=== PATIENT | female | born 1970 | race Caucasian/White ===

== ENCOUNTER → 2020-06-23 10:28 | Outpatient (CLI) | payer OTHER, SELFPAY ==
--- NOTE | ~2020-06-23 | XR_ITS ---
XR foot LT min 3V DATE: 06/23/2020 10:52 INDICATION: Left foot pain TECHNIQUE: 3 views COMPARISON: None FINDINGS: There is osteoarthritic joint space narrowing and spurring at the tibiotalar joint. Osteoar thritic changes are noted at the tarsometatarsal joints. Minimal plantar calcaneal enthesopathy. No fracture, dislocation, periosteal reaction or bone destruction. IMPRESSION: Polyarticular osteoarthritis Minimal plantar calcaneal enthesopathy Reviewed, dictated and finalized at location A.
== END ==
PROVIDERS: PCP Internal Medicine; Visit Provider Internal Medicine
DX: M19.072 Primary osteoarthritis, left ankle and foot (principal)
CPT/HCPCS: 73630

== ENCOUNTER 2020-08-18 08:45 | Outpatient (CLI) | payer OTHER, SELFPAY ==
[2020-08-18 08:58] LABS: Basophils Percent Auto 1.1 % (0.0-1.0); Eosinophils Absolute Auto 0.52 K/mm3 (0.02-0.50); Eosinophils Percent Auto 5.7 % (1.0-6.0); Hematocrit 41.7 % (35.0-49.0); Immature Granulocyte Absolute 0.16 K/mm3 (0.00-0.00); Immature Granulocyte Percent A 1.7 % (0.0-0.0); Lymphocytes Absolute Auto 2.67 K/mm3 (1.10-4.50); Lymphocytes Percent Auto 29.1 % (18.0-42.0); Mean Corpuscular HGB Conc 33.6 g/dL (32.0-36.0); Mean Corpuscular Hemoglobin 28.6 pg (27.0-31.0); Mean Corpuscular Volume 85.3 fL (78.0-102.0); Mean Platelet Volume 9.9 fl (9.2-11.8); Monocytes Percent Auto 6.5 % (2.0-11.0); Neutrophils Absolute Auto 5.1 K/mm3 (1.7-7.2); Neutrophils Percent Auto 55.9 % (50.0-70.0); Platelet Count Result 320 K/mm3 (150-420); Red Blood Count 4.89 M/mm3 (4.20-5.40); Red Cell Distribution Width 12.8 % (11.6-14.4); White Blood Count 9.2 K/mm3 (4.8-10.8)
[2020-08-18 10:21] LABS: Alanine Aminotransferase 32 U/L (14-59); Albumin Level 3.6 g/dL (3.4-5.0); Alkaline Phosphatase 90 U/L (46-116); Anion Gap 8 mmol/L (8-16); Aspartate Amino Transferase 15 U/L (15-37); Bilirubin,Total 0.5 mg/dL (0.00-1.00); Blood Urea Nitrogen 13 mg/dL (7-18); Calcium 8.8 mg/dL (8.5-10.1); Carbon Dioxide 29 mmol/L (21-32); Chloride 104 mmol/L (98-108); Cholesterol 188 mg/dL (0-200); Estimated Glomerular Filt Rate > 60; Glucose 114 mg/dL (70-99); HDL Direct 54 mg/dL (40-60); LDL Cholesterol Calculated 102 mg/dL (<130); Osmolality Calculated 293 mOsm/kg (285-295); Potassium 4.6 mmol/L (3.5-5.1); Sodium 141 mmol/L (136-145); Total Protein 6.8 g/dL (6.4-8.2); Triglycerides 161 mg/dL (0-150); Vitamin B12 481 pg/mL (193-986)
[2020-08-18 11:17] LABS: Folic Acid > 20.0 ng/mL (8.6->20)
== END 2020-08-18 08:46 | disposition home or self-care (01) ==
LOC: CHSLAB 08:47
PROVIDERS: PCP Internal Medicine; Visit Provider Internal Medicine
DX: Z00.00 Encounter for general adult medical examination without abnormal findings (principal); R53.83 Other fatigue; I10 Essential (primary) hypertension
CPT/HCPCS: 36415; 80053; 80061; 82607; 82746; 83735; 84443; 85025

== ENCOUNTER 2020-09-01 07:55 | Outpatient (CLI) | payer OTHER, SELFPAY ==
--- NOTE | ~2020-09-01 | US_ITS ---
EXAMINATION: US venous doppler LE EXAM DATE: 09/01/2020 08:20 INDICATION: Bilateral leg pain. TECHNIQUE: Multiple grayscale, color flow and Doppler images of the lower extremity deep venous syste ms bilaterally were obtained and reviewed. There is no prior study for comparison. FINDINGS: RIGHT SIDE Common femoral: -------- Normal. Profunda femoral: ------- Normal. Femoral: Normal. Popliteal: Normal. Posterior tibial: --------- Normal. Peroneal: Normal. Gastrocnemius: Normal. Soleus: Not visualized. Greater saphenous: ----- Normal. Lesser saphenous: ------ Not visualized. LEFT SIDE Common femoral: -------- Normal. Profunda femoral: ------- Normal. Femoral: Normal. Popliteal: Normal. Posterior tibial: --------- Normal. Peroneal: Normal. Gastrocnemius: Normal. Soleus: Not visualized. Greater saphenous: ----- Normal. Lesser saphenous: ------ Not visualized. IMPRESSION: 1. No evidence of lower extremity deep venous thrombosis bilaterally. Reviewed, dictated and finalized at location A. S BLOCK BENDER
== END 2020-09-01 07:56 | disposition home or self-care (01) ==
LOC: CHSIMG 07:56
PROVIDERS: PCP Internal Medicine; Visit Provider Internal Medicine
DX: M79.606 Pain in leg, unspecified (principal); M79.89 Other specified soft tissue disorders
CPT/HCPCS: 93970

== ENCOUNTER 2021-07-30 01:26 | Day surgery (SDC) | payer OTHER, SELFPAY ==
[2021-07-19 10:19] VITALS: BMI 52.8
[2021-07-30 06:50] VITALS: BP 149/91; PULSE 78; TEMP 36.2; O2SAT 97
[2021-07-30] MEDS: LACTATED RINGERS 1,000 ML 150 ML IV CONT (06:59)
--- NOTE | 2021-07-30 07:07 | PM.HPGS ---
History of Present Illness History of Present Illness Consent: Risks, benefits, and alternatives have been discussed and questions answered. Patient agrees to proceed with procedure. Chief complaint: neoplasm screening Narrative: Jackie Monge is a 51 year old female referred for colon cancer screening. This is her 1st colonoscopy. One grandparent had colon cancer Review of Systems Review of Systems: All systems reviewed & are unremarkable except as noted in HPI and below PMFSH Past Medical History Medical History (Updated 07/30/21 @ 07:07 by Albert Desir MD) Essential (primary) hypertension Primary osteoarthritis of left knee Surgical History Surgical History History of (~1998) Family History Family History Father Diabetes mellitus Family history of arthritis Family history of hemochromatosis Mother Family history of arthritis Family history of sarcoidosis Family history of atrial fibrillation Patient's mother is in good health Sibling Patient's sister is in good health Patient's brother is in good health Social History Social History Smoking status: Never smoker Second hand tobacco smoke exposure: No Alcohol intake: current Substance use: never Substance use type: does not use Living arrangements: with family Spiritual care concerns: No Meds Home Medications and Allergies Home Medications Medication Instructions Recorded Confirmed Type loratadine 10 mg tablet 10 mg PO DAILY 08/28/19 07/30/21 History multivitamin 1 tablet PO DAILY 08/28/19 07/30/21 History acetaminophen 500 mg tablet 1,000 mg PO Q6H PRN tablet 08/28/20 07/30/21 History ibuprofen 800 mg tablet 800 mg PO TID PRN 08/28/20 07/30/21 History lisinopril 10 mg tablet 10 mg PO DAILY #90 tablet 02/22/21 07/30/21 Rx Allergies Allergy/AdvReac Type Severity Reaction Status Date / Time No Known Allergies Allergy Verified 07/19/21 10:18 Vital Signs Vital Signs - 24 hr 07/30/21 06:50 Temperature 36.2 C L Pulse Rate 78 Blood Pressure 149/91 H Pulse Oximetry 97 Exam Resp: Auscultation: clear to auscultation bilaterally Cardio: Rate: regular rate Rhythm: regular rhythm GI: GI Palp: Yes Soft to palpation and No Tenderness to palpation present (GI) Assessment and Plan Assessment and plan (1) Colon cancer screening: Code(s): Z12.11 - Encounter for screening for malignant neoplasm of colon Status: Acute Assessment and Plan: Colonoscopy with possible biopsy or polypectomy or cautery or injection of substances.
--- NOTE | 2021-07-30 07:35 | P.PNAN_ITS ---
Anes - Initial Pre Proc Eval Procedure: Operation Date: 07/30/21 08:00 Proposed Procedures p Screening Colonoscopy - Albert Desir MD Date/Time: 07/30/21 07:35 Surgeon: Albert Desir MD Pre Op Diagnosis: neoplasm screening Patient Data Age: 51 Gender: F Height: 1.7 m Weight: 152.4 kg Last Vital Signs Temp 36.2 C L 07/30/21 06:50 Pulse 78 07/30/21 06:50 BP 149/91 H 07/30/21 06:50 Pulse Ox 97 07/30/21 06:50 Allergies Allergy/AdvReac Type Severity Reaction Status Date / Time No Known Allergies Allergy Verified 07/19/21 10:18 Home Medications Medication Instructions Recorded Confirmed Type loratadine 10 mg tablet 10 mg PO DAILY 08/28/19 07/30/21 History multivitamin 1 tablet PO DAILY 08/28/19 07/30/21 History acetaminophen 500 mg tablet 1,000 mg PO Q6H PRN tablet 08/28/20 07/30/21 History ibuprofen 800 mg tablet 800 mg PO TID PRN 08/28/20 07/30/21 History lisinopril 10 mg tablet 10 mg PO DAILY #90 tablet 02/22/21 07/30/21 Rx Patient hx anesthesia problems: none Family hx anesthesia problems: none Results Review: All pre-operative results and documents have been reviewed as part of the pre-operative evaluation. [facility] Past Medical History Medical History Essential (primary) hypertension Primary osteoarthritis of left knee Surgical History Surgical History History of (~1998) Family History Family History Father Diabetes mellitus Family history of arthritis Family history of hemochromatosis Mother Family history of arthritis Family history of sarcoidosis Family history of atrial fibrillation Patient's mother is in good health Sibling Patient's sister is in good health Patient's brother is in good health Social History Social History Smoking status: Never smoker Second hand tobacco smoke exposure: No Alcohol intake: current Substance use: never Substance use type: does not use Living arrangements: with family Spiritual care concerns: No Anes - Eval Final PreProcedure Day of Procedure 07/30/21 07:35 Patient weight: super morbidly obese Heart: regular rate and rhythm Lungs: decreased breath sounds Airway: Mallampati scale class III Neurological: alert and oriented Last oral intake: >/= 8 hours ASA classification: III Emergent: no Anesthetic plan: proceed Anesthesia type and monitoring: general GIVS and standard monitoring Results Review: All pre-operative results and documents have been reviewed as part of the pre-operative evaluation. Informed Consent: The patient's anesthetic plan and its attendant risks and benefits were discussed with the patient/family/POA. Questions were solicited and answers provided to the satisfaction of the patient/family/POA.
[2021-07-30 08:14] VITALS: BP 110/71; PULSE 71; RESP 21; O2SAT 98
[2021-07-30 08:24] VITALS: BP 116/77; PULSE 71; RESP 17; O2SAT 98
[2021-07-30 08:34] VITALS: BP 138/95; PULSE 66; RESP 19; O2SAT 100
== END 2021-07-30 08:50 | disposition home or self-care (01) ==
PROVIDERS: PCP Internal Medicine; Visit Provider Internal Medicine Gastroenterology
PROC: 0DJD8ZZ Inspection of Lower Intestinal Tract, Via Natural or Artificial Opening Endoscopic (ICD-10-PCS; CPT 45378; principal; 2021-07-30 08:00)
DX: Z12.11 Encounter for screening for malignant neoplasm of colon (principal); K57.30 Diverticulosis of large intestine without perforation or abscess without bleeding; I10 Essential (primary) hypertension; E66.9 Obesity, unspecified; Z68.43 Body mass index [BMI] 50.0-59.9, adult
CPT/HCPCS: 45378; J2704; J7120

== ENCOUNTER 2021-08-17 07:01 | Outpatient (CLI) | payer OTHER, SELFPAY ==
--- NOTE | ~2021-08-17 | XR_ITS ---
EXAMINATION: XR lumbar spine 6V w bending DATE: 08/17/2021 07:54 INDICATION: Low back pain TECHNIQUE: Anteroposterior and neutral and with lateral bending, lateral, and bilateral oblique views of the lumbar spine, and cone-down lateral view of the lumbosacral junction were obtained. COMPARISON: None. FINDINGS: There are 2 mm of anterolisthesis of L3 on L4, 4 mm of anterolisthesis of L4 on L5 and 5 mm of retrolisthesis of L5 on S1. There is severe loss of intervertebral disc space height at L5-S1. Th ere is mild loss of intervertebral disc space height at L4-5. The vertebral body heights are maintain ed. There is no fracture. Small degenerative osteophytes project from the anterior endplates of multi ple vertebral bodies. There is moderate facet osteoarthritis of the lower lumbar spine. IMPRESSION: 1. Moderate lumbar spondylosis without acute findings. Reviewed, dictated and finalized at location A.
--- NOTE | ~2021-08-17 | XR_ITS ---
EXAMINATION: XR hip RT min 3V w AP pelvis INDICATION: Right hip pain TECHNIQUE: AP view the pelvis and three views of the right hip are obtained on five radiographs. COMPARISON: None FINDINGS: Bone alignment is normal. There is no fracture. There is mild osteoarthritis of the hips. L ower lumbar spondylosis is noted. The soft tissues are unremarkable. IMPRESSION: 1. Mild osteoarthritis of the hips. Reviewed, dictated and finalized at location A.
== END 2021-08-17 07:02 | disposition home or self-care (01) ==
LOC: CHSIMG 07:04
PROVIDERS: PCP Internal Medicine; Visit Provider Physician Assistant
DX: M54.9 Dorsalgia, unspecified (principal); M25.551 Pain in right hip; R20.0 Anesthesia of skin
CPT/HCPCS: 72114; 73502

== ENCOUNTER 2021-09-09 07:03 | Outpatient (CLI) | payer OTHER, SELFPAY ==
[2021-09-09 07:14] LABS: Basophils Absolute Auto 0.11 K/mm3 (0.00-0.10); Eosinophils Absolute Auto 0.54 K/mm3 (0.02-0.50); Eosinophils Percent Auto 5.1 % (1.0-6.0); Hematocrit 42.5 % (35.0-49.0); Hemoglobin 14.3 g/dL (12.0-15.0); Immature Granulocyte Percent A 1.9 % (0.0-0.0); Lymphocytes Percent Auto 29.2 % (18.0-42.0); Mean Corpuscular HGB Conc 33.6 g/dL (32.0-36.0); Mean Corpuscular Hemoglobin 28.6 pg (27.0-31.0); Mean Platelet Volume 9.8 fl (9.2-11.8); Monocytes Absolute Auto 0.82 K/mm3 (0.10-0.90); Monocytes Percent Auto 7.7 % (2.0-11.0); Neutrophils Absolute Auto 5.9 K/mm3 (1.7-7.2); Neutrophils Percent Auto 55.1 % (50.0-70.0); Platelet Count Result 340 K/mm3 (150-420); Red Cell Distribution Width 12.9 % (11.6-14.4); White Blood Count 10.6 K/mm3 (4.8-10.8)
[2021-09-09 08:33] LABS: Alanine Aminotransferase 43 U/L (14-59); Albumin Level 3.7 g/dL (3.4-5.0); Alkaline Phosphatase 86 U/L (46-116); Anion Gap 6 mmol/L (8-16); Aspartate Amino Transferase 13 U/L (15-37); Bilirubin,Total 0.4 mg/dL (0.00-1.00); Blood Urea Nitrogen 11 mg/dL (7-18); Calcium 8.9 mg/dL (8.5-10.1); Carbon Dioxide 31 mmol/L (21-32); Chloride 101 mmol/L (98-108); Cholesterol 186 mg/dL (0-200); Estimated Glomerular Filt Rate > 60; Glucose 110 mg/dL (70-99); HDL Direct 51 mg/dL (40-60); LDL Cholesterol Calculated 97 mg/dL (<130); Osmolality Calculated 286 mOsm/kg (285-295); Potassium 4.8 mmol/L (3.5-5.1); Sodium 138 mmol/L (136-145); Thyroid Stimulating Hormone 1.04 uIU/mL (0.36-3.74); Total Protein 6.9 g/dL (6.4-8.2); Triglycerides 190 mg/dL (0-150); Vitamin B12 546 pg/mL (193-986)
[2021-09-09 08:42] LABS: Folic Acid > 20.0 ng/mL (8.6->20)
== END 2021-09-09 07:04 | disposition home or self-care (01) ==
LOC: CHSLAB 07:05
PROVIDERS: PCP Internal Medicine; Visit Provider Internal Medicine
DX: Z00.00 Encounter for general adult medical examination without abnormal findings (principal)
CPT/HCPCS: 36415; 80053; 80061; 82607; 82746; 84443; 85025

== ENCOUNTER 2022-10-10 06:47 | Outpatient (CLI) | payer OTHER, SELFPAY ==
[2022-10-10 07:22] LABS: Basophils Absolute Auto 0.12 K/mm3 (0.00-0.10); Basophils Percent Auto 1.2 % (0.0-1.0); Eosinophils Absolute Auto 0.42 K/mm3 (0.02-0.50); Eosinophils Percent Auto 4.2 % (1.0-6.0); Hematocrit 40.6 % (35.0-49.0); Hemoglobin 13.8 g/dL (12.0-15.0); Lymphocytes Absolute Auto 3.41 K/mm3 (1.10-4.50); Lymphocytes Percent Auto 34.2 % (18.0-42.0); Mean Corpuscular Hemoglobin 28.7 pg (27.0-31.0); Mean Corpuscular Volume 84.4 fL (78.0-102.0); Mean Platelet Volume 10.3 fl (9.2-11.8); Monocytes Absolute Auto 0.79 K/mm3 (0.10-0.90); Monocytes Percent Auto 7.9 % (2.0-11.0); Neutrophils Absolute Auto 5.1 K/mm3 (1.7-7.2); Neutrophils Percent Auto 51.5 % (50.0-70.0); Platelet Count Result 307 K/mm3 (150-420); Red Blood Count 4.81 M/mm3 (4.20-5.40); Red Cell Distribution Width 12.8 % (11.6-14.4)
[2022-10-10 08:27] LABS: Alanine Aminotransferase 40 U/L (14-59); Albumin Level 3.8 g/dL (3.4-5.0); Alkaline Phosphatase 89 U/L (46-116); Anion Gap 6 mmol/L (8-16); Aspartate Amino Transferase 17 U/L (15-37); Bilirubin,Total 0.5 mg/dL (0.00-1.00); Blood Urea Nitrogen 14 mg/dL (7-18); Calcium 8.9 mg/dL (8.5-10.1); Carbon Dioxide 32 mmol/L (21-32); Chloride 101 mmol/L (98-108); Cholesterol 189 mg/dL (0-200); Estimated Glomerular Filt Rate > 60; Folic Acid 19.7 ng/mL (8.6->20); Glucose 109 mg/dL (70-99); HDL Direct 53 mg/dL (40-60); LDL Cholesterol Calculated 106 mg/dL (<130); Osmolality Calculated 289 mOsm/kg (285-295); Potassium 4.5 mmol/L (3.5-5.1); Sodium 139 mmol/L (136-145); Thyroid Stimulating Hormone 1.28 uIU/mL (0.36-3.74); Triglycerides 149 mg/dL (0-150); Vitamin B12 508 pg/mL (193-986)
== END 2022-10-10 06:48 | disposition home or self-care (01) ==
LOC: CHSLAB 06:49
PROVIDERS: PCP Internal Medicine; Visit Provider Internal Medicine
DX: R53.83 Other fatigue (principal); R73.9 Hyperglycemia, unspecified
CPT/HCPCS: 36415; 80053; 80061; 82607; 82746; 83036; 84443; 85025

== ENCOUNTER 2022-12-15 16:29 | Outpatient (CLI) | payer OTHER, SELFPAY ==
--- NOTE | ~2022-12-15 | XR_ITS ---
EXAMINATION: XR hip RT min 3V w AP pelvis DATE: 12/15/2022 17:16 INDICATION: Right hip pain. Fall. TECHNIQUE: An anteroposterior view of the pelvis on 2 radiographs and 3 views of right hip on 4 radio graphs were obtained. COMPARISON: Pelvis and right hip radiographs 08/17/2021 FINDINGS: Bone alignment is normal. No fracture. There is severe lumbar spondylosis. There is mild os teoarthritis of the hips. IMPRESSION: 1. Mild osteoarthritis of the hips. Reviewed, dictated and finalized at location A. P CLASSIFIER
--- NOTE | ~2022-12-15 | XR_ITS ---
EXAMINATION: XR knee RT 3V DATE: 12/15/2022 17:14 INDICATION: Right knee pain. Fall. TECHNIQUE: 5 views of right knee were obtained. COMPARISON: Right knee radiographs 02/19/2013 FINDINGS: Bone alignment is normal. No fracture. There is moderate osteoarthritis of medial and later al compartments and severe osteoarthritis of patellofemoral compartment. No knee joint effusion. IMPRESSION: 1. Severe right knee osteoarthritis. Reviewed, dictated and finalized at location A. ER CRAWLER TORCH
== END 2022-12-15 16:30 | disposition home or self-care (01) ==
LOC: CHSIMG 16:31
PROVIDERS: PCP Internal Medicine; Visit Provider Physician Assistant
DX: M25.569 Pain in unspecified knee (principal); M25.559 Pain in unspecified hip; M16.0 Bilateral primary osteoarthritis of hip; M17.11 Unilateral primary osteoarthritis, right knee
CPT/HCPCS: 73502; 73562

== ENCOUNTER 2023-02-21 11:00 | Outpatient (RCR) | payer OTHER, SELFPAY ==
--- NOTE | 2022-12-29 18:54 | PTOPEVAL1 ---
Assessment and note entered by Zelalem Basilio, PT Evaluation Information Assessment Status Evaluation Diagnosis R knee, hip , and low back pain Subjective Information Christiane reports she has been dealing with TANI knee pain for awhile, but her R hip and low back is really starting to bother her also. It hurts with walking driving, prolonged sitting, steps, and sleeping. She states the pain actually radiated down both legs. She uses NSAIDS, ices, Biofreeze, transdermal patches. She will sometimes use a cane when it is really bothering her. Is trying to lose weight, but currently too heavy for a knee surgery. Is using a restorator at home. Works at [employer] Clinical Summary Christiane is a 52 year old female coming into the clinic with R knee, R hip, and lower back pain. She has decreased TANI knee range of motion and strength along with a tight piriformis. Prognosis is guarded secondary to weight. Physical therapy will work on stretching the piriformis and work on VMO strengthening. These treatments will address the objective and functional deficits as defined above. The patient will be advanced safely and appropriately in order for the patient to progress towards his/her prior level of function. Additional exercises will be introduced and as well as a comprehensive home exercise program upon discharge, if needed, ?to ensure carryover of functional gains achieved in the clinic. This treatment plan has been reviewed and agreement upon by the patient.
--- NOTE | 2023-01-25 09:15 | PTOPREEVAL ---
Assessment and note entered by Zelalem Basilio, PT Evaluation Information Assessment Status Re-evaluation Diagnosis Pain in R knee, R hip, and low back Subjective Information Patient reporting she is still having pain in the RLE and back, but reporting being able to get out of chairs earlier and feels better overall. Patient still has issues with steps and prolonged walking or being on her feet. Is using her restorator at home, but thinking about using the Nu-Step at work. Assessment PT Clinical Summary Christiane is a 52 year old female coming into the clinic for R knee, hip, and low back pain. She was evaluated on 12/28/22 and has attended 8 appts. She has met her strengthening goal and met her range of motion for the L knee goal. No improvements in pain. Recommend further physical therapy to work on core strengthening along with further modalities and manual therapy for pain control. Plan of Care Interventions Electrical Stimulation,Gait Training,Hot Pack/Cold Pack,Manual Therapy,Neuro Re-education,Patient/ Caregiver Education,Therapeutic Activities, Therapeutic Exercise,Ultrasound Other Interventions taping, cupping, IASTM PT Services Indicated Yes Treatment Frequency and 1-2x/wk for 4 weeks Duration These treatments will address the objective and functional deficits as defined above. The patient will be advanced safely and appropriately in order for the patient to progress towards his/her prior level of function. Additional exercises will be introduced and as well as a comprehensive home exercise program upon discharge, if needed, ?to ensure carryover of functional gains achieved in the clinic. This treatment plan has been reviewed and agreement upon by the patient.
--- NOTE | 2023-02-21 11:40 | PTOPDC ---
Assessment and note entered by Zelalem Basilio, PT Evaluation Information Assessment Status Discharge Diagnosis Pain in R knee, Pain in R hip, low back pain Onset Chronic Subjective Information Patient reports she still has tightness and pain, but feels stronger and feels like she will hopefully be able to hold off on knee replacement for another year. Reported Pain Level Pain Score 5: Self Report Assessment PT Clinical Summary Christiane is a 53 year old female coming into the [facility] for RLE and lower back pain. The patient was evaluated on 12/28/22 and has attended 13 visits total. She has met her pain, functional , and strength goals. Did not meet range of motion or centralization goals, although they have improved. Discharged from skilled physical therapy with her home HEP. Plan of Care PT Services Indicated No
== END 2023-03-13 08:47 | disposition home or self-care (01) ==
LOC: ANHPT 11:00
PROVIDERS: PCP Internal Medicine; Visit Provider Physician Assistant
DX: M25.561 Pain in right knee (principal); M25.551 Pain in right hip; M54.50 Low back pain, unspecified
CPT/HCPCS: 97016; 97110; 97112; 97140; 97161; 97530

== ENCOUNTER 2023-12-12 07:08 | Outpatient (CLI) | payer OTHER, SELFPAY ==
[2023-12-12 07:26] LABS: Basophils Absolute Auto 0.12 K/mm3 (0.00-0.10); Basophils Percent Auto 1.3 % (0.0-1.0); Eosinophils Absolute Auto 0.32 K/mm3 (0.02-0.50); Eosinophils Percent Auto 3.6 % (1.0-6.0); Hematocrit 41.7 % (35.0-49.0); Hemoglobin 13.9 g/dL (12.0-15.0); Immature Granulocyte Absolute 0.06 K/mm3 (0.00-0.00); Immature Granulocyte Percent A 0.7 % (0.0-0.0); Lymphocytes Absolute Auto 2.86 K/mm3 (1.10-4.50); Lymphocytes Percent Auto 31.9 % (18.0-42.0); Mean Corpuscular HGB Conc 33.3 g/dL (32.0-36.0); Mean Corpuscular Hemoglobin 27.7 pg (27.0-31.0); Mean Corpuscular Volume 83.2 fL (78.0-102.0); Mean Platelet Volume 10.1 fl (9.2-11.8); Monocytes Absolute Auto 0.58 K/mm3 (0.10-0.90); Monocytes Percent Auto 6.5 % (2.0-11.0); Platelet Count Result 297 K/mm3 (150-420); Red Blood Count 5.01 M/mm3 (4.20-5.40)
[2023-12-12 07:35] LABS: Hemoglobin A1C 5.2 % (<5.7)
[2023-12-12 08:38] LABS: Alanine Aminotransferase 32 U/L (14-59); Albumin Level 3.6 g/dL (3.4-5.0); Alkaline Phosphatase 85 U/L (46-116); Anion Gap 5 mmol/L (8-16); Aspartate Amino Transferase 13 U/L (15-37); Bilirubin,Total 0.4 mg/dL (0.00-1.00); Blood Urea Nitrogen 15 mg/dL (7-18); Calcium 8.9 mg/dL (8.5-10.1); Carbon Dioxide 32 mmol/L (21-32); Chloride 104 mmol/L (98-108); Cholesterol 194 mg/dL (0-200); Estimated Glomerular Filt Rate > 60; Glucose 106 mg/dL (70-99); HDL Direct 63 mg/dL (40-60); LDL Cholesterol Calculated 111 mg/dL (<130); Osmolality Calculated 292 mOsm/kg (285-295); Potassium 4.8 mmol/L (3.5-5.1); Sodium 141 mmol/L (136-145); Thyroid Stimulating Hormone 1.53 uIU/mL (0.36-3.74); Total Protein 6.8 g/dL (6.4-8.2); Triglycerides 100 mg/dL (0-150); Vitamin B12 467 pg/mL (193-986)
[2023-12-12 08:41] LABS: Folic Acid > 20.0 ng/mL (8.6->20)
== END 2023-12-12 07:09 | disposition home or self-care (01) ==
LOC: CHSLAB 07:09
PROVIDERS: PCP Internal Medicine; Visit Provider Physician Assistant
DX: E66.9 Obesity, unspecified (principal); R73.9 Hyperglycemia, unspecified; R53.83 Other fatigue
CPT/HCPCS: 36415; 80053; 80061; 82607; 82746; 83036; 84443; 85025

== ENCOUNTER 2025-02-17 07:37 | Outpatient (CLI) | payer OTHER, SELFPAY ==
--- OUTSIDE RECORDS SUMMARY | 2025-02-17 07:42 | XMS_ITS | Clinical Summary ---
Author Organization [facility] Address [address] [place] [id number] Care Team Providers Care Paper Finisher Name Role Phone Erik Dempsey MD Primary Care Provider [phone] Allergies No known active allergies Medications multivitamin tablet tablet take 1 tablet by oral route every day with food 0 10/04/2012 Active loratadine (CLARITIN) 10 mg tablet take 1 tablet by oral route every day 0 0 11/20/2014 Active lisinopriL (PRINIVIL,ZESTRI L) 10 mg tablet Take 1 tablet (10 mg total) by mouth daily 07/07/2024 Active Active Problems Problem Noted Date Diagnosed Date Hypertension 03/13/2020 Adiposity 11/20/2014 Overview (01/27/2017): Obesity Surgical History Surgery Date Site/Laterality Comments SECTION 1998 delivery Family History Medical History Relation Name Comments Breast cancer Cousin Diabetes Father Diabetes mellit ; Other Father Liver hemachrom atosis; Cause of : Liver hemachromatosis Breast cancer Father's Sister Ovarian cancer Father's Sister Colon cancer Maternal Grandfather Cancer, colon; Heart attack Maternal Grandfather Myocard ial infarction; Cause of : Myocardial infarction Heart attack Maternal Grandmother Myocard ial infarction; Hypertension Mother Hypertension; Other Other No family histo ry of Cancer, breast; Relation Name Status Comments Cousin Father (Age 64) Father's Sister Maternal Grandfather Maternal Grandmother Mother Other Social History Tobacco Use Types Packs/Day Years Used Date Smoking Tobacco: Never Smokeless Tobacco: Never Tobacco Cessation:Counseling Given: Not Answered Alcohol Use Standard Drinks/Week Comments Yes 0 (1 standard drink = 0.6 oz pur e alcohol) Comments No Sex and Gender Information Value Date Recorded Sex Assigned at Not on file Legal Sex Female 9:25 AM OPERATIONS STAFF SPECIALIST SECURITY Gender Identity Not on file Sexual Orientation Not on file Occupation Industry Job Start Date Job End Date RN Not on file Not on file Not on file Obstetrics History Para Term AB IAB SAB Ectopic Multiple Livin g Live Births 1 1 1 0 0 1 Date Outcome GA Total Labor Labor/2nd/3rd Weight Sex Type Anes PTL Teri A1 A5 Name Clin Term Last Filed Vital Signs Vital Sign Reading Time Taken Comments Blood Pressure 140/100 09/26/2024 2:24 PM OPERATIONS STAFF SPECIALIST SECURITY Pulse 82 10/31/2013 8:57 AM OPERATIONS STAFF SPECIALIST SECURITY Temperature - - Respiratory Rate - - Oxygen Saturation - - Inhaled Oxygen Concentration - - Weight 140.6 kg (310 lb) 09/26/2024 2:24 PM OPERATIONS STAFF SPECIALIST SECURITY Height 170.2 cm (5' 7 ) 09/26/2024 2:24 PM OPERATIONS STAFF SPECIALIST SECURITY Body Mass Index 48.55 09/26/2024 2:24 PM OPERATIONS STAFF SPECIALIST SECURITY Plan of Treatment Health Maintenance Due Date Last Done Comments Colon Cancer Screening-Colonoscopy 1969 Depression Screening 1969 Hepatitis C Screening 1969 DTaP/Tdap/Td Vaccine (1 - Tdap) 02/15/1980 Hepatitis B Screening 1987 Zoster Vaccine (1 of 2) 2019 Cervical Cancer Screening 05/27/2022 05/27/2021 Influenza Vaccine (#1) 2024 Breast Cancer Screening-Mammogram 09/26/2025 09/26/2024, 08/18/2023, 06/30/2022, Additional history exists Regular Well Visit/Exam 18-64 09/26/2025 09/26/2024, 09/21/2023, 06/30/2022, Additional history exists Pneumococcal vaccine <65 Aged Out No longer eligible based on patient's age to complete this topic Procedures Procedure Name Priority Date/Time Associated Diagnosis Comments SCREENING MAMMOGRAM BILATERAL W MARK Schedule Routine, Read Routine (OP Routine) 09/26/2024 3:18 PM OPERATIONS STAFF SPECIALIST SECURITY Encounter for screening mammogram for breast cancer IMAGING PAP AND HPV MRNA E6/E7 Routine 05/27/2021 12:00 AM CDT from Last 3 Months or Most Recently Relevant to Health Maintenance Results * Screening Mammogram Bilateral W Mark (09/26/2024 3:18 PM OPERATIONS STAFF SPECIALIST SECURITY) Anatomical Region Laterality Modality Breast Bilateral Mammography 09/26/2024 3:31 PM OPERATIONS STAFF SPECIALIST SECURITY Impressions 09/26/2024 3:31 PM OPERATIONS STAFF SPECIALIST SECURITY There is no mammographic evidence of malignancy. A 1 year screening mammogram is recommended. BI-RADS: 1 - Negative. The patient has been or will be contacted. The patient will be entered into a reminder system with a target due date of 1 year for her next mammogram. Electronically signed by: Eric Abdi M.D. Narrative 09/26/2024 3:31 PM OPERATIONS STAFF SPECIALIST SECURITY EXAMINATION: SCREENING MAMMOGRAM BILATERAL W MARK ORDERING HEALTHCARE PROVIDER: JENNIFER WYATT HISTORY: Routine screening mammography. COMPARISON: 08/18/2023, 06/30/2022, 05/27/2021, 03/26/2020 TECHNIQUE: CC and MLO views of the bilateral breasts were obtained with digital technique using breast tomosynthesis with C view. Computer aided detection was utilized. FINDINGS: DENSITY: There are scattered areas of fibroglandular density. BREASTS: There are no suspicious masses, suspicious calcifications, or other suspicious findings in either breast. There has been no suspicious interval change. Jennifer Wyatt MD IMG MAMMO PROCEDURES Final Result * Imaging Pap and HPV mRNA E6/E7 (05/27/2021 12:00 AM CDT) CLINICAL INFORMATION: [facility] [facility] Comment:Information not prov ided LMP [facility] [facility] Comment:05/01/21 Previous Pap [facility] [facility] Comment:YES Prev. Bx [facility] [facility] Comment:INFORMATION NOT PROV IDED SOURCE: [employer] [facility] Comment:Cervix, Endocervix Pap, specimen adequacy [facility] Comment: Satisfactory for evaluation. Endocervical/transformation zone component present. HPV interp [employer] [facility] Comment:Negative for intraep ithelial lesion or malignancy. COMMENTS [facility] [facility] Comment: This Pap test has been evaluated with computer assisted technology. Agricultural Extension Officer [facility] Comment: BKA, CT(ASCP) CT screening location: [place] [address] Administration MACIE Leos [id number] Comment [facility] Comment: EXPLANATORY NOTE: The Pap is a screening test for cervical cancer. It is not a diagnostic test and is subject to false negative and false positive results. It is most reliable when a satisfactory sample, regularly obtained, is submitted with relevant clinical findings and history, and when the Pap result is evaluated along with historic and current clinical information. Human papillomavirus RNA, High Risk E6/E7 Not Detected Not Detected [facility] [place] Comment: Methodology: Solid Waste Management Engineer-Mediated Amplification This assay detects E6/E7 viral messenger RNA (mRNA) from 14 high-risk HPV types (16,18,31,33,35,39,45,51,52,56,58,59,66,68). The analytical performance characteristics of this assay have been determined by [employer]. The modifications have not been cleared or approved by the FDA. This assay has been validated pursuant to the CLIA regulations and is used for clinical purposes. For additional information, please refer to http://education.Meetyl/faq/HJY152f7 (This link if provided for information/ educational purposes only.) 05/27/2021 05/28/2021 8:5 9 AM CDT Narrative [facility] - 05/31/2021 12:46 PM CDT FASTING: UNKNOWN Jennifer Wyatt MD LAB PATHOLOGY ORDERAB LES Final Result [place] [id number] Administration MACIE Mccartney [id number] [facility] [place] [id number] [address] [place] [id number] from Last 3 Months or Most Recently Relevant to Health Maintenance Insurance [facility]/PPO Address: [address] [place] [address] [facility]/PPO Address: [address] [place] [address] [facility]/PPO Address: [place] [address] Care Teams Paper Finisher Relationship Specialty Start Date End Date Erik Dempsey MD [address] [facility] [address] [place] [id number] PCP - General Internal Medicine 02/02/18
--- OUTSIDE RECORDS SUMMARY | 2025-02-17 07:42 | XMS_ITS | Referral Summary ---
Author Organization [facility] Address [address] [place] [id number] Care Team Providers Care Chain Mender Name Role Phone Erik Dempsey MD Primary Care Provider [phone] Allergies No known active allergies Medications multivitamin [...] Hypertension 03/13/2020 Adiposity 11/20/2014 Overview (01/27/2017): Obesity Social History Tobacco Use Types Packs/Day Years Used Date Smoking Tobacco: Never Smokeless Tobacco: Never Tobacco Cessation:Counseling Given: Not Answered Alcohol Use Standard Drinks/Week Comments Yes 0 (1 standard drink = 0.6 oz pur e alcohol) Comments No Sex and Gender Information Value Date Recorded Sex Assigned at Not on file Legal Sex Female 9:25 AM NETWORK PLANNER Gender Identity Not on file Sexual Orientation Not on file Occupation Industry Job Start Date Job End Date RN Not on file Not on file Not on file Last Filed Vital Signs Vital Sign Reading Time Taken Comments Blood Pressure 140/100 09/26/2024 2:24 PM NETWORK PLANNER Pulse 82 10/31/2013 8:57 AM NETWORK PLANNER Temperature - - Respiratory Rate - - Oxygen Saturation - - Inhaled Oxygen Concentration - - Weight 140.6 kg (310 lb) 09/26/2024 2:24 PM NETWORK PLANNER Height 170.2 cm (5' 7 ) 09/26/2024 2:24 PM NETWORK PLANNER Body Mass Index 48.55 09/26/2024 2:24 PM NETWORK PLANNER Plan of Treatment Not on file Procedures Procedure Name Priority Date/Time Associated Diagnosis Comments SCREENING MAMMOGRAM BILATERAL W MARK Schedule Routine, Read Routine (OP Routine) 09/26/2024 3:18 PM NETWORK PLANNER Encounter for screening mammogram for breast cancer IMAGING PAP AND HPV MRNA E6/E7 Routine 05/27/2021 12:00 AM CDT from Last 3 Months or Most Recently Relevant to Health Maintenance Results * Screening Mammogram Bilateral W Mark (09/26/2024 3:18 PM NETWORK PLANNER) Anatomical Region Laterality Modality Breast Bilateral Mammography 09/26/2024 3:31 PM NETWORK PLANNER Impressions 09/26/2024 3:31 PM NETWORK PLANNER There is no mammographic evidence of malignancy. A 1 year screening mammogram is recommended. BI-RADS: 1 - Negative. The patient has been or will be contacted. The patient will be entered into a reminder system with a target due date of 1 year for her next mammogram. Electronically signed by: Eric Abdi M.D. Narrative 09/26/2024 3:31 PM NETWORK PLANNER EXAMINATION: SCREENING MAMMOGRAM BILATERAL W MARK ORDERING [...] There has been no suspicious interval change. us Jennifer Wyatt MD IMG MAMMO PROCEDURES Final Result * Imaging Pap and HPV mRNA E6/E7 (05/27/2021 12:00 AM CDT) CLINICAL INFORMATION: [facility] Comment:Information not prov ided LMP [facility] Comment:05/01/21 Previous Pap [facility] Comment:YES Prev. Bx [facility] Comment:INFORMATION NOT PROV IDED SOURCE: [facility] Comment:Cervix, Endocervix Pap, specimen adequacy [facility] Comment: Satisfactory for evaluation. Endocervical/transformation zone component present. HPV interp [facility] Comment:Negative for intraep ithelial lesion or malignancy. COMMENTS [facility] Comment: This Pap test has been evaluated with computer assisted technology. Global Chief Creative Officer [facility] Comment: BKA, CT(ASCP) CT screening location: [place] [address] [address] Comment [facility] Comment: EXPLANATORY NOTE: The Pap is a [...] Detected Not Detected [facility] [place] Comment: Methodology: Compliance Auditor-Mediated Amplification This assay detects E6/E7 viral messenger RNA (mRNA) from 14 high-risk HPV types (16,18,31,33,35,39,45,51,52,56,58,59,66,68). The analytical performance characteristics of this assay have been determined by [employer]. The modifications have not been cleared or approved by the FDA. This assay has been validated pursuant to the CLIA regulations and is used for clinical purposes. For additional information, please refer to http://education.[employer]/faq/ZDZ691c5 (This link if provided for information/ educational purposes only.) 05/27/2021 05/28/2021 8:5 9 AM CDT Narrative [facility] - 05/31/2021 12:46 PM CDT FASTING: UNKNOWN Jennifer Wyatt MD LAB PATHOLOGY ORDERAB LES Final Result [facility] [address] [id number] [employer] [address] [place] [address] from Last 3 Months or Most Recently Relevant to Health Maintenance Insurance [facility] Care Teams Chain Mender Relationship Specialty Start Date End Date Erik Dempsey MD [address] [facility] [address] [place] [address] PCP - General Internal Medicine 02/02/18
--- OUTSIDE RECORDS SUMMARY | 2025-02-17 07:42 | XMS_ITS | Encounter Summary ---
Author Organization [employer] Address [address] [place] [address] Care Team Providers Care Aircraft Structural Fitter Name Role Phone Unavailable Primary Care Provider Unavailabl e Encounter Details Date Type Department Care Team (Latest Contact Info) Description 04/15/1999 Outpatient [facility] Leah Au Abnormal findings on screening (Primary Dx) Social History Tobacco Use Types Packs/Day Years Used Date Smoking Tobacco: Never Assessed Comments Unknown Sex and Gender Information Value Date Recorded Sex Assigned at Not on file Legal Sex Female 3:53 AM OPTOMETRIC ASSISTANT Gender Identity Not on file Sexual Orientation Not on file documented as of this encounter Plan of Treatment Not on file documented as of this encounter Visit Diagnoses Diagnosis Abnormal findings on screening- Primary documented in this encounter
--- OUTSIDE RECORDS SUMMARY | 2025-02-17 07:42 | XMS_ITS | Clinical Summary ---
[facility] Address [address] [facility] Attn: Epic Prelude ADT MACIE CARPIO [address] Care Team Providers Care Storage Management Architect Name Role Phone Unavailable Primary Care Provider Unavailabl e Social History Tobacco Use Types Packs/Day Years Used Date Smoking Tobacco: Never Assessed Comments Unknown Sex and Gender Information Value Date Recorded Sex Assigned at Not on file Legal Sex Female 3:53 AM FLUXER Gender Identity Not on file Sexual Orientation Not on file Plan of Treatment Health Maintenance Due Date Last Done Comments DTAP/TDAP/TD VACCINES (1 - Tdap) 02/15/1988 HEPATITIS B VACCINES (1 of 3 - 19+ 3-dose series) 01/22 HPV/Cotest (21-29) 1990 CERVICAL CANCER SCREENING 1999 HPV/Cotest (30-65) 1999 PAP SMEAR 1999 BREAST CANCER SCREENING 2009 COLORECTAL SCREENING 2014 Colorectal Cancer Screening 2014 FIT-DNA Q 3 years 2014 FIT/FOBT Q 1 year 2014 Flex Sig/CT Colonography Q 5 years 2014 ZOSTER VACCINE (1 of 2) 2019 INFLUENZA VACCINE (#1) 2024
[2025-02-17 08:07] LABS: Basophils Percent Auto 1.2 % (0.0-1.0); Eosinophils Absolute Auto 0.33 K/mm3 (0.02-0.50); Hematocrit 42.2 % (35.0-49.0); Hemoglobin 13.8 g/dL (12.0-15.0); Immature Granulocyte Absolute 0.09 K/mm3 (0.00-0.00); Immature Granulocyte Percent A 1.1 % (0.0-0.0); Lymphocytes Absolute Auto 2.81 K/mm3 (1.10-4.50); Lymphocytes Percent Auto 33.7 % (18.0-42.0); Mean Corpuscular HGB Conc 32.7 g/dL (32-36); Mean Corpuscular Hemoglobin 27.4 pg (27.0-31.0); Mean Corpuscular Volume 83.9 fL (78.0-102.0); Mean Platelet Volume 9.7 fl (9.2-11.8); Monocytes Absolute Auto 0.59 K/mm3 (0.10-0.90); Monocytes Percent Auto 7.1 % (2.0-11.0); Neutrophils Absolute Auto 4.42 K/mm3 (1.70-7.20); Neutrophils Percent Auto 52.9 % (50.0-70.0); Platelet Count Result 304 K/mm3 (150-420); Red Blood Count 5.03 M/mm3 (4.20-5.40); Red Cell Distribution Width 13.2 % (11.6-14.4); White Blood Count 8.3 K/mm3 (4.8-10.8)
[2025-02-17 08:19] LABS: Hemoglobin A1C 5.3 % (<5.7)
[2025-02-17 08:51] LABS: Alanine Aminotransferase 31 U/L (14-59); Albumin Level 3.6 g/dL (3.4-5.0); Alkaline Phosphatase 109 U/L (46-116); Anion Gap 6 mmol/L (4-12); Aspartate Amino Transferase 18 U/L (15-37); Bilirubin,Total 0.5 mg/dL (0.00-1.00); Blood Urea Nitrogen 12 mg/dL (7-18); Calcium 9.1 mg/dL (8.5-10.1); Carbon Dioxide 30 mmol/L (21-32); Chloride 104 mmol/L (98-108); Cholesterol 209 mg/dL (0-200); Estimated Glomerular Filt Rate > 60; Glucose 107 mg/dL (70-99); HDL Direct 69 mg/dL (40-60); LDL Cholesterol Calculated 116 mg/dL (<130); Osmolality Calculated 289 mOsm/kg (285-295); Potassium 4.5 mmol/L (3.5-5.1); Sodium 140 mmol/L (136-145); Thyroid Stimulating Hormone 1.25 uIU/mL (0.36-3.74); Total Protein 7.1 g/dL (6.4-8.2); Triglycerides 120 mg/dL (0-150)
== END 2025-02-17 07:38 | disposition home or self-care (01) ==
LOC: CHSLAB 07:40
PROVIDERS: PCP Internal Medicine; Visit Provider Internal Medicine
DX: Z00.00 Encounter for general adult medical examination without abnormal findings (principal); E66.01 Morbid (severe) obesity due to excess calories; Z68.43 Body mass index [BMI] 50.0-59.9, adult; I10 Essential (primary) hypertension; R73.9 Hyperglycemia, unspecified
CPT/HCPCS: 36415; 80053; 80061; 83036; 84443; 85025